=== PATIENT | female | born 1995 | race Caucasian/White ===

== ENCOUNTER 2021-02-11 01:33 | Emergency (ER) | payer BC ==
[~2021-02-11] VITALS: Ht 154.9 cm; Wt 99.8 kg
[2021-02-11 01:50] VITALS: BP_SYST 128
--- NOTE | 2021-02-11 01:50 | NUR ---
Patient to ER bed 6 to gown for evaluation. Side rails up. Report given to SELIN BEST/HONORIO BEST.
--- NOTE | 2021-02-11 01:54 | NUR ---
ER at bedside examining patient.
--- NOTE | 2021-02-11 01:56 | NUR ---
PT BIB [facility] DUE TO A ANXIETY RELATED EPISODE. PT WAS AT HOME AND AT 2300 EXPERINECED AN EPISODE OF ANXIETY AND WANTED TO COME TO ER TO GET HELP. THIS IS NOT PATIENTS FIRST EPISODE OF ANXIETY. PT WANTS SOMETHING TO FEEL BETTER. A&OX3
[2021-02-11] MEDS ORDERED: LORazepam 2 MG/ML VIAL IM ONE (02:00)
[2021-02-11] MEDS ORDERED: OLANZapine IntraMuscular 10 MG VIAL (FOR I.M. INJECTION ONLY) IM ONE (02:00)
[2021-02-11 02:24] LABS: BARBITURATE, URINE NEGATIVE (NEG <=200); BENZODIAZEPINE, URINE NEGATIVE (NEG <=150); CANNABINOID, URINE NEGATIVE (NEG <=50); COCAINE, URINE NEGATIVE (NEG <=150); METHAMPHETAMINES SCREEN,URINE NEGATIVE (NEG <=500); OPIATE, URINE NEGATIVE (NEG <=100); PHENCYCLIDINE SCREEN,URINE NEGATIVE (NEG <=25); UR TRICYCLIC ANTIDEPRESSANTS NEGATIVE (NEG <=300); URINE AMPHETAMINE NEGATIVE (NEG <=500); URINE METHADONE NEGATIVE (NEG <=200); URINE OXYCODONE SCREEN NEGATIVE (NEG <=100); URINE PROPOXYPHENE SCREEN NEGATIVE (NEG <=300)
[2021-02-11] MEDS ORDERED: HALOPERIDOL LACTATE 5 MG/ML VIAL IM ONE (02:30)
[2021-02-11 02:37] VITALS: BP_SYST 128
--- NOTE | 2021-02-11 02:38 | NUR ---
Patient given written and verbal discharge instructions and verbalizes understanding. ER MD discussed with patient the results and treatment provided. Patient in stable condition. ID arm band removed. Patient educated on pain management and to follow up with PMD. Pain Scale 0/10. Opportunity for questions provided and answered. Medication side effect fact sheet provided.
== END 2021-02-11 02:35 | disposition home or self-care (01) ==
LOC: SED 01:33
DX: F22 Delusional disorders (principal)
CPT/HCPCS: 80307; 81025; 96372; 99284; J1630; J2060; J3490